=== PATIENT | male | born 1980 | race Caucasian/White ===

== ENCOUNTER → 2017-03-10 | Outpatient (CLI) | payer MEDICAID ==
[~2017-03-10] MED LIST: ETODOLAC200 MG PO; NAPROSYN500 M1 PO; OXYCODONE SR 2020 MG PO; PREDNISONE 20MG20 MG PO
--- NOTE | 2017-03-10 14:58 | RADIOLOGY REPORT PS360 ---
[id number] VIEWS HISTORY: Right shoulder pain S/P LABRAL REPAIR ORDERING PHYSICIAN: REFERRAL PATIENT AGE: 36 years COMPARISON: 11/24/2015 FINDINGS: The glenohumeral joint and acromioclavicular joint has an unremarkable appearance. There is a small linear 8 x 2 mm calcific density along the superior aspect of the acromium consistent with an avulsion fracture not readily apparent on the previous exam. No other significant abnormalities evident. IMPRESSION: 1. Linear calcific density along the superior aspect of the acromion suspicious for small avulsion fracture 2. Otherwise negative right shoulder
== END ==
LOC: RAD 12:56
DX: Z98.890 Other specified postprocedural states (principal)